=== PATIENT | female | born 1995 | race Caucasian/White ===

== ENCOUNTER 2024-04-30 08:41 | Emergency (ER) | payer MEDICAID ==
[~2024-04-30] VITALS: Ht 154.9 cm; Wt 63.5 kg
[2024-04-30 08:50] VITALS: BP_SYST 127; PULSE 85; RESP 22; TEMP 98.3; O2SAT 98
[2024-04-30] MEDS: carisoprodoL 350 MG TABLET PO SCH (09:15)
[2024-04-30] MEDS: IBUPROFEN 800 MG TABLET PO ONE (09:17)
[2024-04-30 09:23] LABS: BASOPHILS # (AUTO) 0.1 K/uL (0.0-0.2); BASOPHILS % (AUTO) 1.1 % (0.0-2.0); EOSINOPHILS # (AUTO) 0.1 K/uL (0.0-0.4); EOSINOPHILS % (AUTO) 2.3 % (0.0-4.0); HEMATOCRIT 38.8 % (36-48); HEMOGLOBIN 12.7 g/dL (12.0-16.0); LYMPHOCYTES # (AUTO) 1.4 K/uL (1.0-5.5); LYMPHOCYTES % (AUTO) 24.4 % (20.5-51.5); MEAN CORPUSCULAR HEMOGLOBIN 27 pg (27-31); MEAN CORPUSCULAR HGB CONC 33 % (32-36); MEAN CORPUSCULAR VOLUME 82 fL (79.0-98.0); MONOCYTES # (AUTO) 0.5 K/uL (0.0-1.0); MONOCYTES % (AUTO) 8.7 % (1.7-9.3); NEUTROPHILS # (AUTO) 3.8 K/uL (1.8-7.7); NEUTROPHILS % (AUTO) 63.5 % (40.0-70.0); PLATELET COUNT (AUTO) 235 K/uL (130-430); RED BLOOD CELL COUNT(AUTO) 4.72 MIL/uL (4.2-6.2); RED CELL DISTRIBUTION WIDTH 14.2 % (9.0-15.0); WHITE BLOOD COUNT (AUTO) 5.9 K/uL (4.8-10.8)
[2024-04-30 09:36] LABS: PROTHROMBIN TIME 10.4 SECS (9.5-12.5)
[2024-04-30 09:39] LABS: ERYTHROCYTE SEDIMENTATION RATE 11 MM/HR (0-20)
[2024-04-30 09:40] LABS: SERUM HCG (QUALITATIVE) NEGATIVE (NEGATIVE)
[2024-04-30 09:59] LABS: CALCIUM 8.9 mg/dL (8.4-11.0); CREATININE 0.73 mg/dL (0.55-1.30); POTASSIUM 4.6 mmol/L (3.5-5.1); TOTAL BILIRUBIN 1.5 mg/dL (0.0-1.0); TOTAL PROTEIN, SERUM 7.8 g/dL (6.4-8.3)
[2024-04-30 10:09] LABS: BILIRUBIN,DIRECT 0.2 mg/dL (0.0-0.3)
[2024-04-30] MEDS ORDERED: SOM350 PO (10:24)
[2024-04-30] MEDS ORDERED: IBUP-1969 PO (10:24)
[2024-04-30 11:24] VITALS: BP_SYST 115; PULSE 81; RESP 18; TEMP 98.4; O2SAT 100
== END 2024-04-30 11:10 | disposition home or self-care (01) ==
LOC: SED 08:41
DX: S23.3XXA Sprain of ligaments of thoracic spine, initial encounter (principal); R07.81 Pleurodynia; R03.0 Elevated blood-pressure reading, without diagnosis of hypertension; X50.1XXA Overexertion from prolonged static or awkward postures, initial encounter; Y93.89 Activity, other specified; Y92.89 Other specified places as the place of occurrence of the external cause; Y99.8 Other external cause status
CPT/HCPCS: 36415; 71045; 80048; 80076; 84703; 85025; 85610; 85651; 85730; 99284